=== PATIENT | male | born 1970 | race African-American/Black ===

== ENCOUNTER → 2021-02-16 | Outpatient (CLI) | payer BC ==
--- NOTE | 2021-02-19 00:39 | PF ---
[address] [address] PULMONARY FUNCTION REPORT Name: OBI JOLLEY Room: [facility]#: [id number] Admission: 02/16/21 Attend Phys: Manuel Frausto MD Discharge: Date of : 74 Report #: [id number] THIS REPORT FOR: cc: Manny Vazquez MD, [place] S. MD Pervez, Adeel MD ~ DATE OF VISIT: 02/16/2021 PULMONARY FUNCTION TEST INTERPRETATION: The FEV1/FVC ratio is normal at 80% with an FVC decreased to 66%. The FEV1 is decreased to 67%. The FEF 25/75 is normal at 74%. After the administration of a bronchodilator, there is no significant increase in any of these values. The patient's post-bronchodilator FEV1 is 2.62 liters. The total lung capacity is decreased to 74% with a residual volume decreased to 78%. The DLCO as adjusted for hemoglobin is decreased to 21% only. IMPRESSION: 1. Restriction is present with a total lung capacity decreased to 74%. 2. There is also a restrictive pattern on spirometry. Restriction; however, appears to be more prominent on spirometry than on lung volumes and therefore the possibility of mild underlying obstruction also being present is considered. 3. There is severe reduction in DLCO as adjusted for hemoglobin to 21%. <ELECTRONICALLY SIGNED> By: Manuel Frausto MD 02/19/21 [id number] garland Reed
== END ==
LOC: M.PUL 02-09 10:30
PROVIDERS: ATTEND Internal Medicine Critical Care Medicine
DX: R05.9 Cough, unspecified (principal)

== ENCOUNTER → 2021-03-26 | Outpatient (CLI) | payer BC | LOC: M.SLEEPLAB 21:00 | PROVIDERS: ATTEND Internal Medicine Critical Care Medicine | DX: G47.33 Obstructive sleep apnea (adult) (pediatric) (principal); G47.59 Other parasomnia; G47.19 Other hypersomnia; G47.52 REM sleep behavior disorder ==